=== PATIENT | female | born 1995 | race Caucasian/White ===

== ENCOUNTER 2020-08-30 16:03 | Outpatient (CLI) | payer BC ==
--- NOTE | 2020-08-30 16:19 | RAD ---
XR Lumbar Spine 2 Or 3 View HISTORY: Low back pain FINDINGS: No fracture or bony destruction is seen. There is minimal retrolisthesis of L3 over L4. There is mild levoscoliosis of the lumbar spine.
== END 2020-08-30 16:04 | disposition home or self-care (01) ==
LOC: BICRAD 16:03
PROVIDERS: ATTEND Family Medicine
DX: M54.5 Low back pain (principal)
CPT/HCPCS: 72100

== ENCOUNTER 2022-07-29 10:01 | Outpatient (CLI) | payer BC | END 2022-07-29 10:02 | disposition home or self-care (01) | LOC: MRI 10:01 | PROVIDERS: ATTEND Orthopaedic Surgery | DX: M25.561 Pain in right knee (principal) ==